=== PATIENT | female | born 1995 | race Caucasian/White ===

== ENCOUNTER 2018-06-05 10:57 | Emergency (ER) | payer BC ==
[2018-06-05 11:27] VITALS: BP 125/74
--- NOTE | 2018-06-05 11:31 | UC ---
Throat Pain/Nasal Rhys HPI - HPI Summary HPI Summary: 22 -year-old female with sore throat for approximately 3 days. She's also had some head congestion. No fever or chills. - History of Current Complaint Chief Complaint: UCRespiratory Stated Complaint: ST,COUGH,CONGESTION Time Seen by Provider: 06/05/18 11:24 Hx Obtained From: Patient Hx Last Menstrual Period: 05/12/18 ?: No Onset/Duration: Gradual Onset Severity: Mild Pain Intensity: 4 Cough: None Associated Signs & Symptoms: Positive: Nasal Discharge - Epiglottits Risk Factors Epiglottis Risk Factors: Negative - Allergies/Home Medications Allergies/Adverse Reactions: Allergies Allergy/AdvReac Type Severity Reaction Status Date / Time No Known Allergies Allergy Verified 06/05/18 11:23 Home Medications: Home Medications Norethindrone-E.estradiol-Iron [Blisovi Fe 1-20 Tablet] 1 tab DAILY 06/05/18 [ History Confirmed 06/05/18] PMH/Surg Hx/FS Hx/Imm Hx Previously Healthy: Yes - Surgical History Surgical History: None - Family History Known Family History: Positive: None - Social History Occupation: Student Lives: Dormitory/Roommates Alcohol Use: Weekly Substance Use Type: None Smoking Status (MU): Never Smoked Tobacco Review of Systems All Other Systems Reviewed And Are Negative: Yes ENT: Positive: Sore Throat, Nasal Discharge Is Patient Immunocompromised?: No Physical Exam Triage Information Reviewed: Yes Appearance: Well-Appearing, No Pain Distress, Well-Nourished Vital Signs: Initial Vital Signs Temp 97.7 F 06/05/18 11:24 Pulse 79 06/05/18 11:24 Resp 16 06/05/18 11:24 BP 125/74 06/05/18 11:24 Pulse Ox 99 06/05/18 11:24 Vital Signs Reviewed: Yes Eye Exam: Normal ENT: Positive: Hearing grossly normal, Pharyngeal erythema, Nasal congestion, Nasal drainage - Clear nasal coryza, TMs normal, Uvula midline. Negative: Tonsillar swelling, Tonsillar exudate, Trismus, Muffled voice Neck exam: Normal Neck: Positive: Supple, Nontender, No Lymphadenopathy Respiratory: Positive: Lungs clear, Normal breath sounds, No respiratory distress, No accessory muscle use Cardiovascular: Positive: RRR, No Murmur, Pulses Normal, Brisk Capillary Refill Abdominal Exam: Normal Abdomen Description: Positive: Nontender, No Organomegaly, Soft Bowel Sounds: Positive: Present Musculoskeletal Exam: Normal Neurological Exam: Normal Psychological Exam: Normal Skin Exam: Normal Throat Pain/Nasal Course/Dx - Course Course Of Treatment: Patient has been comfortable here. Rapid strep test was negative. I Believe this point this is a viral upper respiratory illness. - Differential Dx/Diagnosis Differential Diagnosis/HQI/PQRI: URI Provider Diagnosis: URI (upper respiratory infection), Pharyngitis Discharge - Sign-Out/Discharge Documenting (check all that apply): Patient Departure All imaging exams completed and their final reports reviewed: No Studies - Discharge Plan Condition: Good Disposition: HOME Patient Education Materials: Pharyngitis (ED) Referrals: No Primary Care Phys,NOPCP [Primary Care Provider] - CRUZ PRITCHARD [[employer], [employer], OTHER] - Additional Instructions: Increase fluids, [id number] cold medication, warm saltwater gargles, throat lozenges. Follow up at the [facility] in 3 or 4 days if no improvement. - Billing Disposition and Condition Condition: GOOD Disposition: Home - Attestation Statements Provider Attestation: Per institutional requirements, I have reviewed the chart, however, I was not consulted specifically or made aware of this patient by the midlevel provider. I did not personally evaluate, interact with , or disposition this patient
== END 2018-06-05 11:55 | disposition home or self-care (01) ==
LOC: UCCORT 10:57
DX: J06.9 Acute upper respiratory infection, unspecified (principal); J02.9 Acute pharyngitis, unspecified
CPT/HCPCS: 87651; 99201; G0463